=== PATIENT | female | born 1990 | race Caucasian/White ===

== ENCOUNTER 2024-01-20 13:11 | Emergency (ER) | payer SELFPAY ==
[2024-01-20] MEDS ORDERED: cefTRIAXone 500 MG Vial IM ONE (14:45)
[2024-01-20] MEDS: cefTRIAXone 500 MG, Lidocaine 1% 1 ML IM SCH (15:47)
[2024-01-20 16:02] LABS: APPEARANCE,URINE CLEAR (Clear); BILIRUBIN,URINE NEGATIVE (Negative); COLOR,URINE YELLOW (Yellow); GLUCOSE,URINE NEGATIVE (Negative); KETONES,URINE 1+ (Negative); LEUKOCYTE ESTERASE,URINE NEGATIVE (Negative); NITRITE,URINE NEGATIVE (Negative); OCCULT BLOOD,URINE NEGATIVE (Negative); PROTEIN,URINE NEGATIVE (Negative); UROBILINOGEN,URINE 0.2 (0.2-1.0)
[2024-01-20 17:24] LABS: C. TRACHOMATIS BY PCR NOT DETECTED; N. GONORRHOEAE BY PCR NOT DETECTED
[2024-01-20] MEDS: Acetaminophen 325 MG Tab PO ONE (18:15)
== END 2024-01-20 18:00 | disposition home or self-care (01) ==
LOC: JD.ED 13:11
DX: O99.613 Diseases of the digestive system complicating pregnancy, third trimester (principal); O98.813 Other maternal infectious and parasitic diseases complicating pregnancy, third trimester; K02.9 Dental caries, unspecified; B37.31 Acute candidiasis of vulva and vagina
CPT/HCPCS: 0352U; 81003; 87491; 87591; 96372; 99283; A9270-GY; J0696; J3490